=== PATIENT | male | born 1950 | race Caucasian/White ===

== ENCOUNTER → 2017-02-03 | Day surgery (SDC) | payer OTHER ==
[2017-02-02 08:42] VITALS: BMI 28.2
[~2017-02-03] MED LIST: LACTATED RINGERS 1,000 ML IV SCH; LIDOCAINE 1% 20 ML VIAL (10MG/ML) FOR IV START INTRADERMA ONE; MIDAZOLAM 2 MG/2 ML VIAL ONE; PROPOFOL 10 MG/ML 20 ML VIAL IV ONE; fentaNYL (PF) 50 MCG/ML 2 ML AMP ONE
[2017-02-03 08:26] VITALS: TEMP 98.5
[2017-02-03 08:46] LABS: Glucose,Whole Blood 230 mg/dL (75-99)
--- NOTE | 2017-02-03 09:38 | P.PCN ---
Date of Procedure: 02/03/17 Procedure(s) Performed: Procedure: Colonoscopy and polypectomy. Preoperative diagnosis: Abdominal pain and change in bowel habits. Postoperative diagnosis: Multiple small polyps snared but no large polyps or cancer or other pathology. Preparation: HalfLytely prep. Sedation: Was provided by anesthesia. Brief clinical history: The patient is a 66-year-old male who is referred for this evaluation for nonspecific abdominal symptoms including abdominal pain. He had a prior colonoscopy more than 20 years ago. An upper endoscopy done last February showed low-grade esophagitis and mild gastritis. Procedure: With the patient on his left lateral decubitus position and after informed consent and adequate sedation, the perianal area was inspected and it did not show any fissures or fistulas. There were no masses felt on digital rectal examination. The Olympus CFQ 160L video colonoscope was then inserted in the rectum in the usual fashion and advanced to the cecum. There were 4 small polyps in the right colon which were snared and retrieved by suction. There were 2 small polyps in the proximal sigmoid which were snared and retrieved by suction, and there was a small polyp in the rectum within 1-2 cm from the anal verge that was snared and retrieved by suction. There were no large polyps or cancer. No obvious diverticular disease or other pathology. I retroflexed endoscope in the rectum before the endoscope was withdrawn. The patient tolerated the procedure well. Plan: The patient was reassured. Discussed dietary measures. I am recommending repeat exam in 3 years. He will follow up with you as planned. I would be happy to see in the office of his symptoms persist.
[2017-02-03 09:40] VITALS: RESP 16
[2017-02-03 09:48] VITALS: PULSE 78
[2017-02-03 09:49] VITALS: BP 99/67
[2017-02-03 09:50] LABS: Glucose,Whole Blood 231 mg/dL (75-99)
== END ==
LOC: ORWHC2ENDO 07:56
DX: D12.2 Benign neoplasm of ascending colon (principal); D12.5 Benign neoplasm of sigmoid colon; D12.8 Benign neoplasm of rectum; R10.9 Unspecified abdominal pain; R19.4 Change in bowel habit; J44.9 Chronic obstructive pulmonary disease, unspecified; E11.9 Type 2 diabetes mellitus without complications; K21.9 Gastro-esophageal reflux disease without esophagitis; E78.5 Hyperlipidemia, unspecified; J45.909 Unspecified asthma, uncomplicated; F17.200 Nicotine dependence, unspecified, uncomplicated; Z79.84 Long term (current) use of oral hypoglycemic drugs; Z79.51 Long term (current) use of inhaled steroids; Z79.899 Other long term (current) drug therapy; Z91.013 Allergy to seafood
CPT/HCPCS: 88305; 45385; J2250; J3010; J2704

== ENCOUNTER 2019-03-15 06:41 | Day surgery (SDC) | payer OTHER ==
[2019-03-14 11:15] VITALS: BMI 28.2
[~2019-03-15 06:41] MED LIST changes: -LIDOCAINE 1% 20 ML VIAL (10MG/ML) FOR IV START INTRADERMA ONE; +LIDOCAINE 1% 20 ML VIAL (10MG/ML) FOR IV START INTRADERMA PRN; -MIDAZOLAM 2 MG/2 ML VIAL ONE; -PROPOFOL 10 MG/ML 20 ML VIAL IV ONE; -fentaNYL (PF) 50 MCG/ML 2 ML AMP ONE
[2019-03-15 07:08] VITALS: TEMP 98
[2019-03-15 07:32] LABS: Glucose,Whole Blood 184 mg/dL (75-99)
[2019-03-15] MEDS ORDERED: PROPOFOL 10 MG/ML 20 ML VIAL IV ONE (08:31)
[2019-03-15] MEDS ORDERED: LIDOCAINE 1% INJ 10MG/ML (20 ML MDV) ONE (08:31)
[2019-03-15 08:50] VITALS: RESP 16
[2019-03-15 09:14] VITALS: BP 137/85; PULSE 66
--- NOTE | 2019-03-15 22:38 | PCN ---
PROCEDURE NOTE DATE OF SERVICE: 03/15/2019. PROCEDURE PERFORMED: Esophagogastroduodenoscopy and biopsy. PREOPERATIVE DIAGNOSIS: Epigastric pain. POSTOPERATIVE DIAGNOSES: 1. Small sliding hiatal hernia with no obvious esophagitis or complicated reflux disease. 2. Mild antral gastritis. Multiple biopsies obtained from the duodenum, antrum, and esophagus. Preparation and sedation were provided by Anesthesia. BRIEF CLINICAL HISTORY: The patient is a 68-year-old male who is scheduled for this evaluation because of epigastric pain and abdominal discomfort that has not been responding to PPI therapy. The patient had an upper endoscopy in February 2016 that showed small hiatal hernia and mild antral gastritis with linear erosions and 1 superficial ulceration at the GE junction consistent with LA grade B reflux esophagitis. This evaluation is to assess for complicated reflux disease or other pathology. PROCEDURE: With the patient on his left lateral decubitus position and after informed consent and adequate sedation, I passed the Olympus GIF H 190 video upper endoscope through the cricopharyngeus down the esophagus. The GE junction was around 40-41 cm from the incisors and there was a small sliding hiatal hernia but no obvious esophagitis or complicated reflux disease. The endoscope was then passed into the stomach which was insufflated with air and inspected in detail including the retroflexed view in the cardia. There was mottling and erythema in the antrum but no ulcers or erosions. The pyloric channel, duodenal bulb, postbulbar area and descending duodenum appeared within normal limits. I obtained multiple biopsies from the duodenum, antrum, and the esophagus. Then the endoscope was withdrawn. The patient tolerated the procedure well. PLAN: The patient was reassured. We will await biopsy results. Further plans can be made based on his course and biopsy results. He will follow up with you as planned and I will be happy to see in the office if his symptoms persist. MMODL / IJN: [id number] /
== END 2019-03-15 09:30 | disposition home or self-care (01) ==
LOC: ORWHC2ENDO 06:41
DX: K29.50 Unspecified chronic gastritis without bleeding (principal); K44.9 Diaphragmatic hernia without obstruction or gangrene; J44.9 Chronic obstructive pulmonary disease, unspecified; E78.5 Hyperlipidemia, unspecified; E11.9 Type 2 diabetes mellitus without complications; F39 Unspecified mood [affective] disorder; Z79.899 Other long term (current) drug therapy; Z72.0 Tobacco use; Z79.84 Long term (current) use of oral hypoglycemic drugs; Z79.51 Long term (current) use of inhaled steroids; Z88.8 Allergy status to other drugs, medicaments and biological substances; Z91.013 Allergy to seafood
CPT/HCPCS: 88305; 43239; J2001; J2704

== ENCOUNTER 2021-07-22 14:01 | Emergency (ER) | payer OTHER ==
[2021-07-22 15:31] VITALS: TEMP 98.9
[2021-07-22] MEDS ORDERED: PANTOPRAZOLE 40 MG/10 ML VIAL IVP STA (18:34)
--- NOTE | 2021-07-22 18:34 | ED ---
General Adult HPI - General Chief complaint: Nausea/Vomiting/Diarrhea Stated complaint: Allergic reaction, Diarrhea Time Seen by Provider: 07/22/21 18:11 Source: patient Mode of arrival: ambulatory Limitations: no limitations - History of Present Illness Initial comments: 70-year-old male presents to the emergency department for a chief complaint of black stools. Patient states a couple weeks ago he started on celecoxib for pain. Patient states that about 2 days afterwards he started to have black stools. States that this then turned into black diarrhea. He spoke with the pharmacist today who recommended he come to the emergency room and be evaluated for bleeding. Patient denies nausea vomiting. Denies fevers. Patient has no other complaints at this time including shortness of breath, chest pain, nausea or vomiting, headache, or visual changes. - Related Data Home Medications Medication Instructions Recorded Confirmed Albuterol Sulfate [Proventil Hfa] 2 puff INHALATION RT-Q6H PRN 02/20/16 07/22/21 Fluticasone Nasal [place] [Flonase 2 spr EA NOSTRIL DAILY 02/20/16 07/22/21 Nasal [place]] Pregabalin [Lyrica] 200 mg PO BID 02/20/16 07/22/21 metFORMIN HCL [Glucophage] 1,000 mg PO BID 02/02/17 07/22/21 Insulin Glargine,Hum.rec.anlog 52 unit SQ HS 12/21/17 07/22/21 [Lantus Solostar] Omeprazole 40 mg PO DAILY 03/14/19 07/22/21 Tiotropium 18 Mcg/Puff [Spiriva] 2 puff INHALATION RT-DAILY 03/14/19 07/22/21 Atorvastatin [Lipitor] 40 mg PO HS 07/22/21 07/22/21 Celecoxib [CeleBREX] 200 mg PO DAILY 07/22/21 07/22/21 Fluticasone Propion/Salmeterol 1 puff INHALATION RT-BID 07/22/21 07/22/21 [Fluticasone-Salmeterol 500-50] traZODone HCL [Desyrel] 200 mg PO HS 07/22/21 07/22/21 Allergies Allergy/AdvReac Type Severity Reaction Status Date / Time Fish Containing Products Allergy Anaphylaxis Verified 07/22/21 20:25 [Fish] shellfish derived [Shellfish] Allergy Anaphylaxis Verified 07/22/21 20:25 baclofen AdvReac Unknown Verified 07/22/21 20:25 Seafood Allergy Anaphylaxis Uncoded 07/22/21 15:27 Enviro: AdvReac Coughing, Uncoded 07/22/21 15:27 cottonwood,trees,pollen sneezing, runny eyes Review of Systems ROS Statement: Those systems with pertinent positive or pertinent negative responses have been documented in the HPI. ROS Other: All systems not noted in ROS Statement are negative. Past Medical History Past Medical History: COPD, Diabetes Mellitus, GERD/Reflux, Hyperlipidemia Additional Past Medical History / Comment(s): CHRONIC PAIN History of Any Multi-Drug Resistant Organisms: None Reported Past Surgical History: Appendectomy, Back Surgery, Cholecystectomy, Ear Surgery, Hernia Repair Additional Past Surgical History / Comment(s): COLONOSCOPY Past Anesthesia/Blood Transfusion Reactions: No Reported Reaction Past Psychological History: No Psychological Hx Reported Smoking Status: Current every day smoker Past Alcohol Use History: None Reported Past Drug Use History: Marijuana - Past Family History Mother Family Medical History: Cancer Additional Family Medical History / Comment(s): " from throat cancer" Father Family Medical History: Myocardial Infarction (ME) Additional Family Medical History / Comment(s): " of a heart attack" General Exam Limitations: no limitations General appearance: alert, in no apparent distress Head exam: Present: atraumatic Eye exam: Present: normal appearance, PERRL, EOMI. Absent: scleral icterus, conjunctival injection ENT exam: Present: normal exam, mucous membranes moist Neck exam: Present: normal inspection, full ROM. Absent: tenderness Respiratory exam: Present: normal lung sounds bilaterally. Absent: respiratory distress, wheezes Cardiovascular Exam: Present: regular rate, normal rhythm, normal heart sounds GI/Abdominal exam: Present: soft, normal bowel sounds. Absent: distended, tenderness Neurological exam: Present: alert Course Vital Signs 07/22/21 07/22/21 15:28 20:35 Temperature 98.9 F Pulse Rate 70 68 Respiratory 20 18 Rate Blood Pressure 143/70 164/80 O2 Sat by Pulse 94 L 97 Oximetry Medical Decision Making - Medical Decision Making vitals are stable. CBC CMP unremarkable. Hemoglobin is 14.3. Occult blood is negative. At this time patient is stable for al home and outpatient follow up. recommend he discontinue celecoxib as this started 2 days after starting the medication. Discussed that if diarrhea does not improve he may need GI referral for colonoscopy. - Lab Data Result diagrams: 07/22/21 18:55 07/22/21 18:55 Lab Results 07/22/21 07/22/21 07/22/21 Range/Units 18:55 18:55 19:00 WBC 9.9 (3.8-10.6) k/uL RBC 5.11 (4.30-5.90) m/uL Hgb 14.3 (13.0-17.5) gm/dL Hct 44.0 (39.0-53.0) % MCV 86.1 (80.0-100.0) fL MCH 28.0 (25.0-35.0) pg MCHC 32.5 (31.0-37.0) g/dL RDW 15.0 (11.5-15.5) % Plt Count 256 (150-450) k/uL MPV 8.7 Neutrophils % 64 % Lymphocytes % 24 % Monocytes % 6 % Eosinophils % 3 % Basophils % 1 % Neutrophils # 6.4 (1.3-7.7) k/uL Lymphocytes # 2.3 (1.0-4.8) k/uL Monocytes # 0.6 (0-1.0) k/uL Eosinophils # 0.3 (0-0.7) k/uL Basophils # 0.1 (0-0.2) k/uL Sodium 138 (137-145) mmol/L Potassium 4.4 (3.5-5.1) mmol/L Chloride 106 (98-107) mmol/L Carbon Dioxide 22 (22-30) mmol/L Anion Gap 10 mmol/L BUN 13 (9-20) mg/dL Creatinine 0.89 (0.66-1.25) mg/dL Est GFR (CKD-EPI)AfAm >90 (>60 ml/min/1.73 sqM) Est GFR (CKD-EPI)NonAf 88 (>60 ml/min/1.73 sqM) Glucose 88 (74-99) mg/dL Calcium 9.5 (8.4-10.2) mg/dL Total Bilirubin 0.5 (0.2-1.3) mg/dL AST 32 (17-59) U/L ALT 23 (4-49) U/L Alkaline Phosphatase 66 (38-126) U/L Total Protein 7.4 (6.3-8.2) g/dL Albumin 4.5 (3.5-5.0) g/dL Stool Occult Blood Negative (Negative) Disposition Clinical Impression: Diarrhea Disposition: HOME SELF-CARE Condition: Good Instructions (If sedation given, give patient instructions): Acute Diarrhea (ED) Additional Instructions: Please follow up with primary care in 1-2 days. Return to the ER for any worsening symptoms. Is patient prescribed a controlled substance at d/c from ED?: No Referrals: [facility],Clinic [Primary Care Provider] - 1-2 days Time of Disposition: 20:15
[2021-07-22 19:01] LABS: Basophils # (A) 0.1 k/uL (0-0.2); Basophils % (A) 1 %; Eosinophils # (A) 0.3 k/uL (0-0.7); Eosinophils % (A) 3 %; HGB 14.3 gm/dL (13.0-17.5); Lymphocytes # (A) 2.3 k/uL (1.0-4.8); Lymphocytes % (A) 24 %; MCHC 32.5 g/dL (31.0-37.0); MCV 86.1 fL (80.0-100.0); Mean Platelet Volume 8.7; Monocytes # (A) 0.6 k/uL (0-1.0); Monocytes % (A) 6 %; Neutrophils # (A) 6.4 k/uL (1.3-7.7); Neutrophils % (A) 64 %; Platelet Count 256 k/uL (150-450); RBC 5.11 m/uL (4.30-5.90); WBC 9.9 k/uL (3.8-10.6)
[2021-07-22 19:22] LABS: ALT 23 U/L (4-49); AST 32 U/L (17-59); African American GFR (CKD) >90 (>60 ml/min/1.73 sqM); Albumin 4.5 g/dL (3.5-5.0); Alkaline Phosphatase 66 U/L (38-126); Anion Gap 10 mmol/L; Blood Urea Nitrogen 13 mg/dL (9-20); Calcium 9.5 mg/dL (8.4-10.2); Carbon Dioxide 22 mmol/L (22-30); Chloride 106 mmol/L (98-107); Glucose 88 mg/dL (74-99); Non-African American GFR(CKD) 88 (>60 ml/min/1.73 sqM); Potassium 4.4 mmol/L (3.5-5.1); Sodium 138 mmol/L (137-145); Total Bilirubin 0.5 mg/dL (0.2-1.3); Total Protein 7.4 g/dL (6.3-8.2)
[2021-07-22 20:36] VITALS: BP 164/80; PULSE 68; RESP 18
== END 2021-07-22 20:49 | disposition home or self-care (01) ==
LOC: EC 14:01
DX: R19.7 Diarrhea, unspecified (principal); R11.2 Nausea with vomiting, unspecified; J44.9 Chronic obstructive pulmonary disease, unspecified; K21.9 Gastro-esophageal reflux disease without esophagitis; E78.5 Hyperlipidemia, unspecified; E11.9 Type 2 diabetes mellitus without complications; F17.200 Nicotine dependence, unspecified, uncomplicated; Z79.899 Other long term (current) drug therapy; Z91.013 Allergy to seafood; Z91.048 Other nonmedicinal substance allergy status; Z88.8 Allergy status to other drugs, medicaments and biological substances; Z90.49 Acquired absence of other specified parts of digestive tract; Z79.4 Long term (current) use of insulin; Z79.51 Long term (current) use of inhaled steroids
CPT/HCPCS: 36415; 80053; 85025; 82272; 99284; 96374; C9113

== ENCOUNTER 2023-03-08 07:18 | Day surgery (SDC) | payer OTHER ==
[2023-03-03 13:45] VITALS: BMI 26.8
[~2023-03-08 07:18] MED LIST changes: +LIDOCAINE 1% (10MG/ML) FOR IV START INTRADERMA PRN; -LIDOCAINE 1% 20 ML VIAL (10MG/ML) FOR IV START INTRADERMA PRN
[2023-03-08 07:53] VITALS: RESP 16; TEMP 97.7
[2023-03-08 07:59] LABS: Glucose,Whole Blood 104 mg/dL (70-110)
[2023-03-08] MEDS ORDERED: PROPOFOL 10 MG/ML 20 ML VIAL IV ONE (08:21)
[2023-03-08] MEDS ORDERED: LIDOCAINE 2% INJ 20 MG/ML (2 ML VIAL) ONE (08:21)
--- NOTE | 2023-03-08 08:32 | P.PCN ---
Date of Procedure: 03/08/23 Procedure(s) Performed: BRIEF HISTORY: Patient is a 72-year-old, pleasant, white male scheduled for an upper endoscopy as a part of evaluation of long-standing history of GERD. PROCEDURE PERFORMED: Esophagogastroduodenoscopy with biopsy. PREOPERATIVE DIAGNOSIS: Long-standing history of GERD. IV sedation per anesthesia. PROCEDURE: After informed consent was obtained, the patient was brought into the endoscopy unit. IV sedation was administered by Anesthesia under continuous monitoring. Initially the Olympus GIF-140 video endoscope was inserted into the mouth. Esophagus intubated without any difficulty. It was gradually advanced into the stomach and duodenum and carefully examined. The bulb and the second part of the duodenum appeared normal. The scope at this time was withdrawn to the stomach, adequately insufflated with air, and upon careful examination, mucosa of the antrum, and mild antral gastritis and biopsies were done from this area. Mucosa of the body, cardia and the fundus appeared normal. The scope was then withdrawn into the esophagus. Small hiatal hernia noted. The GE junction was located at 40 cm from the incisors. There was a short segment of Oconnor's esophagus extending 3-4 mm proximal to the GE junction which was biopsied. There were no erosions or ulcerations seen and the patient tolerated the procedure well. IMPRESSION: 1. Short segment Oconnor's esophagus status post biopsy. 2. Mild antral gastritis and small hiatal hernia. RECOMMENDATIONS: The findings of this examination were discussed with the patient as his family.. He was advised to follow with the biopsy results. She will continue with omeprazole 20 mg daily and follow antireflux measures. If the biopsy reveals Oconnor's esophagus he can have a repeat upper endoscopy in 3 years
[2023-03-08 08:49] VITALS: BP 127/80; PULSE 62
[2023-03-08 08:55] LABS: Glucose,Whole Blood 97 mg/dL (70-110)
== END 2023-03-08 09:05 | disposition home or self-care (01) ==
LOC: ORWHC2ENDO 07:18
PROVIDERS: ATTEND Internal Medicine Gastroenterology
DX: K29.50 Unspecified chronic gastritis without bleeding (principal); K44.9 Diaphragmatic hernia without obstruction or gangrene; E78.5 Hyperlipidemia, unspecified; J44.9 Chronic obstructive pulmonary disease, unspecified; F17.210 Nicotine dependence, cigarettes, uncomplicated; E11.9 Type 2 diabetes mellitus without complications; K21.9 Gastro-esophageal reflux disease without esophagitis; Z79.4 Long term (current) use of insulin; Z79.899 Other long term (current) drug therapy; Z91.013 Allergy to seafood; Z88.8 Allergy status to other drugs, medicaments and biological substances
CPT/HCPCS: 88305; 43239; J2704; J2001

== ENCOUNTER → 2024-07-12 | Outpatient (CLI) | payer OTHER | END | disposition home or self-care (01) | LOC: RADUSWWP 08:24 | PROVIDERS: ATTEND Family Medicine | DX: Z53.9 Procedure and treatment not carried out, unspecified reason (principal) ==

== ENCOUNTER → 2024-07-19 | Outpatient (CLI) | payer OTHER ==
--- NOTE | 2024-07-19 13:35 | CTL ---
EXAMINATION TYPE: CT Low Dose Lung DATE OF EXAM ORDERED: 07/19/2024 HISTORY: Nicotine dependence, current smoker, 75 pack-year history. Lung cancer screening CT DLP: 111.[address] CTDI: 2.9 mGy Automated exposure control for dose reduction was used. SCREENING VISIT: First screening visit COMPARISON: No direct comparisons TECHNIQUE: Low dose computed tomography scan was performed through the chest at 1 mm thick sections a nd reconstructed images in multiple planes at 1 mm and [address] DIAGNOSTIC QUALITY: Satisfactory FINDINGS: Nodules: No clinically significant pulmonary nodules. Left major fissure intrafissural lymph node. LUNGS: COPD: Severity: Minimal Fibrosis: Severity: None Lymph nodes: None Other findings: Scarring within the lingula. RIGHT PLEURAL SPACE: Effusion: None Calcification: None Thickening: None Pneumothorax: None LEFT PLEURAL SPACE: Effusion: None Calcification: None Thickening: None Pneumothorax: None HEART: Heart Size: Normal Coronary Calcification: Small Pericardial Effusion: None OTHER FINDINGS: Upper abdomen: Postcholecystectomy changes. Bony thorax: Mild multilevel degenerative changes of the spine.. Supraclavicular region: None Other: Mild atherosclerotic calcification of the aorta and its branches. IMPRESSION: No clinically significant pulmonary nodules. CT LUNG RAD AND CT CHEST RECOMMENDATION: Lung-Rad 1 Negative: Continue annual screening with LDCT in 12 months. S Modifier (other clinically significant findings): None [facility], , 07/19/2024 1:32 PM
== END | disposition home or self-care (01) ==
LOC: RADCTMAIN 07:39
PROVIDERS: ATTEND Family Medicine
DX: Z12.2 Encounter for screening for malignant neoplasm of respiratory organs (principal); F17.210 Nicotine dependence, cigarettes, uncomplicated; I70.0 Atherosclerosis of aorta
CPT/HCPCS: 71271